=== PATIENT | male | born 1965 | race Caucasian/White ===

== ENCOUNTER 2017-07-16 05:55 | Emergency (ER) | payer OTHER, MEDICAID ==
[~2017-07-16] VITALS: Ht 175.3 cm; Wt 71.2 kg
[2017-07-16 05:59] VITALS: BP_SYST 161
[2017-07-16] MEDS ORDERED: CEPHALEXIN 500 MG CAPSULE PO ONE (06:15)
[2017-07-16] MEDS ORDERED: IBUPROFEN 800 MG TABLET PO ONE (06:15)
[2017-07-16] MEDS ORDERED: SULFAMETHOXAZOLE/TRIMETHOPR DS 1 TABLET PO ONE (06:15)
[2017-07-16] MEDS ORDERED: DIPH-TET-PERTUS Vaccine 0.5 ML VIAL (ADACEL) I.M. ONE (06:15)
== END 2017-07-16 06:27 | disposition home or self-care (01) ==
LOC: SED 05:55
DX: L03.113 Cellulitis of right upper limb (principal); R03.0 Elevated blood-pressure reading, without diagnosis of hypertension
CPT/HCPCS: 90715; 99284